=== PATIENT | male | born 1985 | race Caucasian/White ===

== ENCOUNTER 2023-11-16 18:17 | Emergency (ER) | payer OTHER ==
[2023-11-16 18:50] VITALS: BP 155/93; RESP 18; TEMP 98.2; BMI 22.7
[2023-11-16] MEDS ORDERED: KETOROLAC TROMETHAMINE 15 MG/ML VIAL ONE (19:43)
[2023-11-16] MEDS: KETOROLAC TROMETHAMINE 15 MG/ML VIAL IM ONE (19:54)
[2023-11-16 20:05] LABS: BASO % 0.6 % (0-2.0); EOS % 0.9 % (0-4.5); HEMATOCRIT 42.9 % (35.4-49); HEMOGLOBIN 15.2 GM/dL (11.7-16.9); LYMPH % 18.4 % (8-40); MCH 32.2 pg (25.7-33.7); MCHC 35.5 g/dl (32.0-35.9); MEAN CELL VOLUME 90.9 fl (80-96); MEAN PLT VOLUME 7.7 fl (7.5-11.1); MONO % 6.3 % (3.8-10.2); NEUT % 73.8 % (42.8-82.8); PLATELET COUNT 239 10^3/uL (134-434); RBC 4.72 M/mm3 (4.00-5.60); RDW 13.6 % (11.9-15.9); WHITE BLOOD COUNT 5.8 K/mm3 (4.0-10.0)
[2023-11-16 20:16] LABS: POTASSIUM 3.9 mmol/L (3.5-5.1)
[2023-11-16 20:18] LABS: ALBUMIN 4.6 g/dl (3.4-5.0); CALCIUM 9.5 mg/dL (8.5-10.1)
[2023-11-16 20:19] LABS: BLOOD UREA NITROGEN 8.3 mg/dL (7-18)
[2023-11-16 20:22] LABS: CREATININE 0.9 mg/dL (0.55-1.3)
[2023-11-16 20:23] LABS: BILIRUBIN,TOTAL 1.8 mg/dL (0.2-1); TOT PROT 8.5 g/dl (6.4-8.2)
[2023-11-16 20:42] VITALS: PULSE 98
== END 2023-11-16 21:28 | disposition home or self-care (01) ==
LOC: JER 18:17
PROC: 3E0233Z Introduction of Anti-inflammatory into Muscle, Percutaneous Approach (ICD-10-PCS; principal; 2023-11-16)
DX: R07.2 Precordial pain (principal); S29.011A Strain of muscle and tendon of front wall of thorax, initial encounter; X58.XXXA Exposure to other specified factors, initial encounter; Z20.822 Contact with and (suspected) exposure to COVID-19
CPT/HCPCS: 0241U-QW; 36415; 71046-TC-FY; 80053; 84484; 85025; 93005; 93010; 99285-25